=== PATIENT | female | born 1955 | race African-American/Black ===

== ENCOUNTER 2021-02-14 17:37 | Emergency (ER) | payer OTHER ==
[~2021-02-14] VITALS: Ht 149.9 cm; Wt 56.2 kg
[2021-02-14] MEDS ORDERED: ADULT LOW DOSE81 M1 (17:58)
[2021-02-14] MEDS ORDERED: ZESTRIL2.5 MG (17:58)
[2021-02-14] MEDS ORDERED: FOLIC ACID0.8 M1 (17:58)
== END 2021-02-14 20:02 | disposition home or self-care (01) ==
LOC: ER 17:37
DX: R00.2 Palpitations (principal); R53.81 Other malaise

== ENCOUNTER 2025-03-07 00:38 | Emergency (ER) | payer OTHER ==
[~2025-03-07] VITALS: Ht 149.9 cm; Wt 53.5 kg
[~2025-03-07 00:38] MED LIST: ADULT LOW DOSE81 M1; FOLIC ACID0.8 M1; ZESTRIL2.5 MG
[2025-03-07 01:26] VITALS: O2SAT 98
[2025-03-07] MEDS ORDERED: IRON240 MG PO (01:29)
[2025-03-07] MEDS ORDERED: TOPROL XL25 M1 PO (01:29)
[2025-03-07] MEDS ORDERED: TETANUS & DIPHTHERIA TOX,ADULT 0.5 ML VIAL IM ONE (01:45)
[2025-03-07] MEDS ORDERED: CEFTRIAXONE SODIUM 1,000 MG VIAL IM STA (01:46)
[2025-03-07] MEDS ORDERED: LABETALOL HCL 20MG/4ML SYRINGE IV STA (01:46)
[2025-03-07 03:02] VITALS: BP 170/90
[2025-03-07] MEDS ORDERED: AMOX-CLAV 875-1 EACH PO (03:50)
[2025-03-07] MEDS ORDERED: 8 HOUR PAIN RE650 M1 PO (03:50)
== END 2025-03-07 04:16 | disposition home or self-care (01) ==
LOC: ER 00:39
DX: S61.451A Open bite of right hand, initial encounter (principal); W55.01XA Bitten by cat, initial encounter; Y93.89 Activity, other specified; Y92.89 Other specified places as the place of occurrence of the external cause; Y99.9 Unspecified external cause status; I16.9 Hypertensive crisis, unspecified; I10 Essential (primary) hypertension; Z88.8 Allergy status to other drugs, medicaments and biological substances
CPT/HCPCS: 73130; 90471; 90714; 96365; 96372; 99283; J0696; J1670; J3490